=== PATIENT | female | born 1995 | race Caucasian/White ===

== ENCOUNTER 2018-04-14 07:10 | Observation (INO) | payer BC ==
[2018-04-14] MEDS ORDERED: Sodium Chloride 0.9% 10 ML Syringe FLUSH PRN (09:35)
[2018-04-14] MEDS ORDERED: Lidocaine 1% 50 ML MDV INJECT ONE (09:35)
[2018-04-14] MEDS ORDERED: Nalbuphine 20 MG/1 ML Amp IVPUSH PRN (09:35)
[2018-04-14] MEDS ORDERED: Ondansetron 4 MG/2 ML SDV IVPUSH PRN (09:35)
[2018-04-14] MEDS ORDERED: Oxytocin/Lactated Ringers 10 UNIT/1,000 ML BAG IV SCH ×2 (09:45)
[2018-04-14] MEDS ORDERED: Nalbuphine 20 MG/ML 1 ML Syringe IVPUSH PRN (10:00)
[2018-04-14] MEDS: Lactated Ringers 1,000 ML IV SCH ×2 (10:52→11:47)
[2018-04-14] MEDS ORDERED: diphenhydrAMINE 50 MG/ML SDV IVPUSH PRN (12:13)
[2018-04-14] MEDS ORDERED: fentaNYL 100 MCG/2 ML SDV EPIDUR PRN (12:13)
[2018-04-14] MEDS ORDERED: ePHEDrine 50 MG/ML SDV IVPUSH PRN (12:13)
[2018-04-14] MEDS ORDERED: Bupivacaine/fentaNYL/NS 100 ML Bag EPIDUR SCH (12:15)
--- NOTE | 2018-04-18 06:44 | PCM.SN ---
- Free Text/Narrative Note: Brought in for anticipated induction of labor. NST preformed. Labor and delivery unit busy and patient unable to be admitted for labor. Admission cancelled and patient discharged with plans to return tomorrow. Labor, headache and blood pressure and movement precautions given.
== END 2018-04-14 13:30 | disposition home or self-care (01) ==
LOC: JD.OB 07:10
PROVIDERS: ADMIT Obstetrics & Gynecology; ATTEND Obstetrics & Gynecology
DX: O13.3 Gestational [pregnancy-induced] hypertension without significant proteinuria, third trimester (principal); Z88.6 Allergy status to analgesic agent; Z88.1 Allergy status to other antibiotic agents; Z88.0 Allergy status to penicillin; Z91.030 Bee allergy status; Z91.018 Allergy to other foods; Z91.013 Allergy to seafood; Z3A.37 37 weeks gestation of pregnancy
CPT/HCPCS: 36415; 59025; 85025; 96360; G0378; J7120

== ENCOUNTER 2018-04-15 07:26 | Inpatient (IN) | payer BC ==
[2018-04-15] MEDS ORDERED: Lactated Ringers 1,000 ML ONE (07:58)
[2018-04-15] MEDS ORDERED: Ondansetron 4 MG/2 ML SDV IVPUSH PRN ×2 (08:19→08:54)
[2018-04-15] MEDS ORDERED: Nalbuphine 20 MG/ML 1 ML Syringe IVPUSH PRN (08:19)
[2018-04-15] MEDS ORDERED: Lidocaine 1% 50 ML MDV INJECT ONE (08:19)
[2018-04-15] MEDS ORDERED: Sodium Chloride 0.9% 10 ML Syringe FLUSH PRN (08:19)
[2018-04-15] MEDS ORDERED: Oxytocin/Lactated Ringers 10 UNIT/1,000 ML BAG IV SCH ×2 (08:30)
[2018-04-15] MEDS ORDERED: Labetalol 100 MG Tab PO ONE (08:53)
[2018-04-15] MEDS ORDERED: diphenhydrAMINE 50 MG/ML SDV IVPUSH PRN (08:54)
[2018-04-15] MEDS ORDERED: fentaNYL 100 MCG/2 ML SDV EPIDUR PRN (08:54)
[2018-04-15] MEDS ORDERED: ePHEDrine 50 MG/ML SDV IVPUSH PRN (08:54)
[2018-04-15] MEDS ORDERED: Bupivacaine/fentaNYL/NS 100 ML Bag EPIDUR SCH (09:00)
--- NOTE | 2018-04-15 09:45 | PCM.PREANE ---
Preanesthetic Assessment - Anesthesia/Transfusion/Family Hx Anesthesia History: Prior Anesthesia Without Reaction Family History of Anesthesia Reaction: No Transfusion History: Prior Transfusion Without Reaction - Review of Systems General: No Symptoms Pulmonary: No Symptoms Cardiovascular: No Symptoms Gastrointestinal: No Symptoms Neurological: Headache (Constant with ), Other (Blurred vision related to gestational hypertension.) Other: Reports: None - Physical Assessment Pulse: 84 O2 Sat by Pulse Oximetry: 98 Respiratory Rate: 18 Blood Pressure: 130/98 Vital Signs: Last Vital Signs Temp Pulse 84 04/15/18 09:08 Resp BP 130/98 H 04/15/18 09:08 Pulse Ox ASA Class: 2 Mental Status: Alert & Oriented x3 Airway Class: Mallampati = 2 Dentition: Reports: Normal Dentition Thyro-Mental Finger Breadths: 3 Mouth Opening Finger Breadths: 3 ROM/Head Extension: Full Lungs: Clear to Auscultation, Normal Respiratory Effort Cardiovascular: Regular Rate, Regular Rhythm - Lab Values: Laboratory Last Values WBC 10.16 K/mm3 (3.98-10.04) H 04/15/18 09:00 RBC 4.48 M/mm3 (3.98-5.22) 04/15/18 09:00 Hgb 12.0 gm/L (11.2-15.7) 04/15/18 09:00 Hct 36.6 % (34.1-44.9) 04/15/18 09:00 MCV 81.7 fl (79.4-94.8) 04/15/18 09:00 MCH 26.8 pg (25.6-32.2) 04/15/18 09:00 MCHC 32.8 g/dl (32.2-35.5) 04/15/18 09:00 RDW Std Deviation 42.8 fL (36.4-46.3) 04/15/18 09:00 Plt Count 178 K/mm3 (182-369) L 04/15/18 09:00 MPV 13.4 fl (9.4-12.3) H 04/15/18 09:00 Neut % (Auto) 59.2 % (34.0-71.1) 04/15/18 09:00 Lymph % (Auto) 34.4 % (19.3-51.7) 04/15/18 09:00 Stanton % (Auto) 5.1 % (4.7-12.5) 04/15/18 09:00 Eos % (Auto) 0.9 (0.7-5.8) 04/15/18 09:00 Baso % (Auto) 0.1 % (0.1-1.2) 04/15/18 09:00 Neut # (Auto) 6.01 K/mm3 (1.56-6.13) 04/15/18 09:00 Lymph # (Auto) 3.50 K/mm3 (1.18-3.74) 04/15/18 09:00 Stanton # (Auto) 0.52 K/mm3 (0.24-0.36) H 04/15/18 09:00 Eos # (Auto) 0.09 K/mm3 (0.04-0.36) 04/15/18 09:00 Baso # (Auto) 0.01 K/mm3 (0.01-0.08) 04/15/18 09:00 - Allergies Allergies/Adverse Reactions: Allergies Allergy/AdvReac Type Severity Reaction Status Date / Time cefazolin Allergy Rash Verified 04/14/18 09:20 clams Allergy Rash Verified 04/09/18 21:37 erythromycin base Allergy Anaphylactic Verified 04/09/18 21:37 Shock ibuprofen Allergy Bleeding Verified 04/09/18 21:37 kiwi Allergy Rash Verified 04/09/18 21:37 Latex, Natural Rubber Allergy Anaphylactic Verified 04/14/18 09:21 Shock Penicillins Allergy Anaphylactic Verified 04/09/18 21:37 Shock strawberry Allergy Rash Verified 04/09/18 21:37 - Acknowledgements Anesthesia Type Planned: Epidural Pt an Appropriate Candidate for the Planned Anesthesia: Yes Alternatives and Risks of Anesthesia Discussed w Pt/Guardian: Yes Pt/Guardian Understands and Agrees with Anesthesia Plan: Yes Additional Comments: Patient states she had an epidural that did not work previously. She is aware it is a possibility that she could not get good coverage again, but wishes to proceed. 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 Psychiatric History: Reports: Anxiety, Bipolar, Depression, Emotional Problems, Psych Hospitalization(s), Suicide Attempt - Past Surgical History HEENT Surgical History: Reports: Other (See Below) Other HEENT Surgeries/Procedures: 2 HIP SURG Respiratory Surgical History: Reports: None - CURRENT (IN HOUSE) MEDS Current Meds: Current Medications Diphenhydramine HCl (Benadryl) 25 mg IVPUSH Q6H PRN PRN Reason: Pruritis Ephedrine Sulfate (Ephedrine Sulfate) 5 mg IVPUSH ASDIRECTED PRN PRN Reason: Hypotension Fentanyl (Sublimaze) 100 mcg EPIDUR ONETIME PRN PRN Reason: Pain Fentanyl/Bupivacaine HCl (Fentanyl/Bupivacaine/Ns 2 Mcg-0.125% 100 Ml) 100 ml EPIDUR ASDIRECTED FELTON Lactated Ringer's (Ringers, Lactated) 1,000 mls @ 100 mls/hr IV ASDIRECTED FELTON Oxytocin/Lactated Ringer's (Pitocin In Lr 10 Units/1,000 Ml) 10 unit in 1,000 mls @ 500 mls/hr IV .CONTINUOUS FELTON Oxytocin/Lactated Ringer's (Pitocin In Lr 10 Units/1,000 Ml) 10 unit in 1,000 mls @ 12 mls/hr IV TITRATE FELTON; Protocol Nalbuphine HCl (Nubain) 10 mg IVPUSH Q2H PRN PRN Reason: Pain (moderate 4-6) Ondansetron HCl (Zofran) 4 mg IVPUSH Q4H PRN PRN Reason: Nausea/Vomiting Ondansetron HCl (Zofran) 4 mg IVPUSH ONETIME PRN PRN Reason: Nausea/Vomiting Sodium Chloride (Saline Flush) 10 ml FLUSH ASDIRECTED PRN PRN Reason: Keep Vein Open Discontinued Medications Lactated Ringer's (Ringers, Lactated) Confirm Administered Dose 1,000 mls @ as directed .ROUTE .STK-MED ONE Stop: 04/15/18 07:59 Labetalol HCl (Normodyne) 100 mg PO STAT ONE Stop: 04/15/18 08:54 Last Admin: 04/15/18 09:08 Dose: 100 mg Lidocaine HCl (Xylocaine 1%) 50 ml INJECT ONETIME ONE Stop: 04/15/18 08:20
[2018-04-15] MEDS: Lactated Ringers 1,000 ML IV SCH ×3 (10:31→15:57)
[2018-04-15] MEDS ORDERED: fentaNYL 100 MCG/2 ML SDV ONE (15:44)
--- NOTE | 2018-04-15 17:42 | PCM.SN ---
- Free Text/Narrative Note: Stage I - Patient presented for IOL for mild pre-ecclampsia. AROM and pitocin augmentation. Progressed to complete with epidural and overall reassuring heart tones. Stage II - of viable female, weight 6#2OZ, APGARS 7/8 at 1726. Head delivered in controlled manner over intact perineum. Baby to maternal abdomen. Cord clamped and cut. Baby not vigorous so to warmer. Cord blood collected. Stage III - Placenta delivered spontaneous and intact. 3VC. EBL 200.
[2018-04-15] MEDS ORDERED: Lanolin 100% Cream 7 GM Tube TOP PRN (17:48)
[2018-04-15] MEDS ORDERED: Witch Hazel Medicated Pads 100/Jar TOP PRN (17:48)
[2018-04-15] MEDS ORDERED: Ibuprofen 600 MG Tab PO PRN (17:48)
[2018-04-15] MEDS: Acetaminophen 325 MG Tab PO PRN (20:50)
[2018-04-15] MEDS ORDERED: Bupivacaine 0.25% 10 ML SDV ONE (22:00)
[2018-04-15] MEDS ORDERED: Benzocaine/Menthol 20%-0.5% Spray 56 GM Canister TOP PRN (23:49)
[2018-04-16] MEDS: Acetaminophen 325 MG Tab PO PRN ×4 (04:19→22:02)
[2018-04-16] MEDS: Sertraline 50 MG Tab PO SCH (17:32)
[2018-04-17] MEDS: Ondansetron 4 MG Tab.DIS PO PRN ×2 (03:07→13:28)
[2018-04-17] MEDS: Acetaminophen 325 MG Tab PO PRN ×2 (04:18→09:26)
--- NOTE | 2018-04-17 08:53 | PCM.DCSUM1 ---
Discharge Summary - Hospital Course Brief History: Admitted for induction for gestational hypertension. Uncomplicated delivery and . - Discharge Data Discharge Date: 04/17/18 Discharge Disposition: Home, Self-Care 01 Condition: Good - Discharge Diagnosis/Problem(s) (1) 37 weeks gestation of SNOMED Code(s): 28539179 ICD Code: Z3A.37 - 37 WEEKS GESTATION OF Status: Acute Current Visit: No (2) Gestational hypertension SNOMED Code(s): 92311340 ICD Code: O13.9 - GESTATIONAL HTN W/O SIGNIFICANT PROTEINURIA, UNSP TRIMESTER Status: Acute Current Visit: No (3) Headache in SNOMED Code(s): 77232958 ICD Code: O26.899 - OTH RELATED CONDITIONS, UNSPECIFIED TRIMESTER; R51 - HEADACHE Status: Acute Current Visit: No - Patient Summary/Data Hospital Course: Uncomplicated delivery. Preexisting depression. Resume effexor on discharge. - Patient Instructions Diet: Heart Healthy Diet Activity: No Strenuous Activities Activity, Other: pelvic rest for 6 weeks Driving: May Drive Today Showering/Bathing: May Shower Notify Provider of: Fever, Increased Pain, Swelling and Redness, Drainage, Nausea and/or Vomiting - Discharge Plan Referrals: Donna Brown MD [Primary Care Provider] - (2 weeks) - Discharge Summary/Plan Comment DC Time >30 min.: No - General Info Date of Service: 04/17/18 Functional Status: Reports: Pain Controlled - Review of Systems General: Reports: No Symptoms HEENT: Reports: No Symptoms Pulmonary: Reports: No Symptoms Cardiovascular: Reports: No Symptoms Gastrointestinal: Reports: No Symptoms Genitourinary: Reports: No Symptoms Musculoskeletal: Reports: No Symptoms Skin: Reports: No Symptoms Neurological: Reports: No Symptoms Psychiatric: Reports: No Symptoms - Patient Data Vitals - Most Recent: Last Vital Signs Temp 36.9 C 04/17/18 02:54 Pulse 71 04/17/18 02:54 Resp 16 04/17/18 02:54 BP 140/106 H 04/17/18 02:54 Pulse Ox 98 04/17/18 02:54 Weight - Most Recent: 84.368 kg I&O - Last 24 hours: Intake & Output 04/16/18 04/17/18 04/17/18 22:59 06:59 14:59 Intake Total 120 Balance 120 Med Orders - Current: Current Medications Acetaminophen (Tylenol) 650 mg PO Q4H PRN PRN Reason: Pain Last Admin: 04/17/18 04:18 Dose: 650 mg Benzocaine/Menthol (Dermoplast Pain Relief [place]) 56 gm TOP ASDIRECTED PRN PRN Reason: Pain Last Admin: 04/16/18 00:00 Dose: 1 canister Emollient Ointment (Lansinoh Hpa) 0 gm TOP ASDIRECTED PRN PRN Reason: Sore Nipples Last Admin: 04/16/18 04:18 Dose: 1 tube Ondansetron HCl (Zofran Odt) 4 mg PO Q4H PRN PRN Reason: Nausea/Vomiting Last Admin: 04/17/18 03:07 Dose: 4 mg Sertraline HCl (Zoloft) 50 mg PO DAILY FELTON Last Admin: 04/16/18 17:32 Dose: 50 mg Witch Charla (Tucks) 1 pad TOP ASDIRECTED PRN PRN Reason: Hemorrhoid pain Last Admin: 04/15/18 20:49 Dose: 1 tub Discontinued Medications Bupivacaine HCl (Sensorcaine-Mpf 0.25%) 10 ml .ROUTE .STK-MED ONE Stop: 04/15/18 22:01 Diphenhydramine HCl (Benadryl) 25 mg IVPUSH Q6H PRN PRN Reason: Pruritis Last Admin: 04/15/18 13:17 Dose: 25 mg Ephedrine Sulfate (Ephedrine Sulfate) 5 mg IVPUSH ASDIRECTED PRN PRN Reason: Hypotension Fentanyl (Sublimaze) 100 mcg EPIDUR ONETIME PRN PRN Reason: Pain Last Admin: 04/15/18 11:01 Dose: 100 mcg Fentanyl (Sublimaze) Confirm Administered Dose 100 mcg .ROUTE .STK-MED ONE Stop: 04/15/18 15:45 Last Admin: 04/15/18 15:50 Dose: 100 mcg Fentanyl/Bupivacaine HCl (Fentanyl/Bupivacaine/Ns 2 Mcg-0.125% 100 Ml) 100 ml EPIDUR ASDIRECTED [facility] Last Admin: 04/15/18 11:01 Dose: 100 ml Lactated Ringer's (Ringers, Lactated) Confirm Administered Dose 1,000 mls @ as directed .ROUTE .STK-MED ONE Stop: 04/15/18 07:59 Last Admin: 04/15/18 08:15 Dose: 100 mls/hr Lactated Ringer's (Ringers, Lactated) 1,000 mls @ 100 mls/hr IV ASDIRECTED FELTON Last Admin: 04/15/18 15:57 Dose: 500 mls/hr Oxytocin/Lactated Ringer's (Pitocin In Lr 10 Units/1,000 Ml) 10 unit in 1,000 mls @ 500 mls/hr IV .CONTINUOUS FELTON Oxytocin/Lactated Ringer's (Pitocin In Lr 10 Units/1,000 Ml) 10 unit in 1,000 mls @ 12 mls/hr IV TITRATE FELTON; Protocol Last Titration: 04/15/18 15:10 Dose: 12 munits/min, 72 mls/hr Ibuprofen (Motrin) 600 mg PO Q6H PRN PRN Reason: Mild pain or fever Labetalol HCl (Normodyne) 100 mg PO STAT ONE Stop: 04/15/18 08:54 Last Admin: 04/15/18 09:08 Dose: 100 mg Lidocaine HCl (Xylocaine 1%) 50 ml INJECT ONETIME ONE Stop: 04/15/18 08:20 Last Admin: 04/15/18 18:13 Dose: Not Given Nalbuphine HCl (Nubain) 10 mg IVPUSH Q2H PRN PRN Reason: Pain (moderate 4-6) Ondansetron HCl (Zofran) 4 mg IVPUSH Q4H PRN PRN Reason: Nausea/Vomiting Ondansetron HCl (Zofran) 4 mg IVPUSH ONETIME PRN PRN Reason: Nausea/Vomiting Sodium Chloride (Saline Flush) 10 ml FLUSH ASDIRECTED PRN PRN Reason: Keep Vein Open - Exam General: Reports: Alert, Oriented HEENT: Reports: Pupils Equal, Pupils Reactive, EOMI, Mucous Membr. Moist/[place] Neck: Reports: Supple Lungs: Reports: Clear to Auscultation, Normal Respiratory Effort Cardiovascular: Reports: Regular Rate, Regular Rhythm GI/Abdominal Exam: Normal Bowel Sounds, Soft, Non-Tender, No Organomegaly, No Distention, No Abnormal Bruit, No Mass, Pelvis Stable (Female) Exam: Normal External Exam, Normal Speculum Exam, Normal Bimanual Exam Back Exam: Reports: Normal Inspection, Full Range of Motion Extremities: Normal Inspection, Normal Range of Motion, Non-Tender, No Pedal Edema, Normal Capillary Refill Skin: Reports: Warm, Dry, Intact Wound/Incisions: Reports: Healing Well Neurological: Reports: No New Focal Deficit Psy/Mental Status: Reports: Alert, Normal Affect, Normal Mood
[2018-04-17] MEDS: Sertraline 50 MG Tab PO SCH (09:26)
== END 2018-04-17 15:00 | disposition home or self-care (01) | DRG 560 ==
LOC: JD.OB 07:26 → OBSVTOIN 17:26 → JD.OB 17:26
PROVIDERS: ADMIT Obstetrics & Gynecology; ATTEND Obstetrics & Gynecology
PROC: 10E0XZZ Delivery of Products of Conception, External Approach (ICD-10-PCS; principal; 2018-04-15)
PROC: 10907ZC Drainage of Amniotic Fluid, Therapeutic from Products of Conception, Via Natural or Artificial Opening (ICD-10-PCS; 2018-04-15)
PROC: 3E033VJ Introduction of Other Hormone into Peripheral Vein, Percutaneous Approach (ICD-10-PCS; 2018-04-15)
PROC: 6A550ZT Pheresis of Cord Blood Stem Cells, Single (ICD-10-PCS; 2018-04-15)
PROC: 00HU33Z Insertion of Infusion Device into Spinal Canal, Percutaneous Approach (ICD-10-PCS; 2018-04-15)
PROC: 3E0R3BZ Introduction of Anesthetic Agent into Spinal Canal, Percutaneous Approach (ICD-10-PCS; 2018-04-15)
DX: O13.4 Gestational [pregnancy-induced] hypertension without significant proteinuria, complicating childbirth (principal); O69.81X0 Labor and delivery complicated by cord around neck, without compression, not applicable or unspecified; Z3A.37 37 weeks gestation of pregnancy; Z37.0 Single live birth
CPT/HCPCS: 36415; 51702; 59025; 59409; 82565; 83615; 84450; 84460; 84520; 84550; 85025; A9270-GY; J1200; J2590; J3010; J7120

== ENCOUNTER 2018-08-18 15:41 | Emergency (ER) | payer BC ==
--- NOTE | 2018-08-18 16:12 | EDM.PDOC ---
ED HPI GENERAL MEDICAL PROBLEM - General Chief Complaint: Lower Extremity Injury/Pain Stated Complaint: L FOOT INJURY - DOG BITE Time Seen by Provider: 08/18/18 16:11 - History of Present Illness INITIAL COMMENTS - FREE TEXT/NARRATIVE: 23-year-old male presents emergency room after getting bit the left foot by the family dog. This occurred shortly before arrival according to the patient the dog is up-to- date on its rabies vaccinations. Patient has a puncture wound over the ball the foot in approximately the middle but again over the tibial aspect of the forefoot just proximal to the great metatarsal head. This occurred about 3 or 4 hours prior to arrival. The patient is nursing her and is allergic to penicillin. Left Feet Pain Score (Numeric/FACES): 8 - Related Data Allergies Allergy/AdvReac Type Severity Reaction Status Date / Time cefazolin Allergy Rash Verified 04/14/18 09:20 clams Allergy Rash Verified 04/09/18 21:37 erythromycin base Allergy Anaphylactic Verified 04/09/18 21:37 Shock ibuprofen Allergy Bleeding Verified 04/09/18 21:37 kiwi Allergy Rash Verified 04/09/18 21:37 Latex, Natural Rubber Allergy Anaphylactic Verified 04/14/18 09:21 Shock Penicillins Allergy Anaphylactic Verified 04/09/18 21:37 Shock strawberry Allergy Rash Verified 04/09/18 21:37 Home Meds: Home Meds Clindamycin HCl 600 mg PO Q8H #40 capsule 08/18/18 [Rx] Venlafaxine [Effexor] 37.5 mg PO BID 08/18/18 [History] Past Medical History - Past Health History Medical/Surgical History: Denies Medical/Surgical History HEENT History: Reports: Other (See Below) Other HEENT History: ASTHMA Respiratory History: Reports: 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 Psychiatric History: Reports: Anxiety, Bipolar, Depression, Emotional Problems, Psych Hospitalization(s), PTSD, Schizophrenia, Suicide Attempt - Past Surgical History HEENT Surgical History: Reports: Other (See Below) Other HEENT Surgeries/Procedures: 2 HIP SURG Respiratory Surgical History: Reports: None Social & Family History - Family History Family Medical History: Noncontributory - Caffeine Use Caffeine Use: Reports: Coffee - Recreational Drug Use Recreational Drug Use: No Review of Systems - Review of Systems Review Of Systems: See Below Constitutional: Reports: No Symptoms Respiratory: Reports: No Symptoms Cardiovascular: Reports: No Symptoms GI/Abdominal: Reports: No Symptoms Genitourinary: Reports: No Symptoms Neurological: Reports: No Symptoms ED EXAM, GENERAL - Physical Exam Exam: See Below Exam Limited By: No Limitations General Appearance: Alert, No Apparent Distress Neck: Normal Inspection, Supple, Non-Tender, Full Range of Motion Respiratory/Chest: No Respiratory Distress, Lungs Clear, Normal Breath Sounds Cardiovascular: Regular Rate, Rhythm, No Edema, No Murmur Extremities: Normal Range of Motion, No Pedal Edema, Normal Capillary Refill, Other (Patient left foot shows large puncture wound with associated tear on the medial aspect of her forefoot just proximal to the great metatarsal head she has a simple puncture wound near the head of the third metatarsal on the ball of the foot. Her foot was cleansed here in the emergency department and it was deemed best not to attempt closure of the larger puncture wound with associated tear laceration). No: Non-Tender (She has tenderness over the ball of the foot near the puncture wounds and the side of her foot) Course - Vital Signs Last Recorded V/S: Last Vital Signs Temp 36.8 C 08/18/18 15:58 Pulse 89 08/18/18 15:58 Resp 20 08/18/18 15:58 BP 129/95 H 08/18/18 15:58 Pulse Ox 99 08/18/18 15:58 - Orders/Labs/Meds Orders: Active Orders 24 hr Category Date Time Status Foot Comp Min 3V Lt [CR] Stat Exams 08/18/18 16:21 Taken Meds: Medications Discontinued Medications Generic Name Dose Route Start Last Admin Trade Name Dulce PRN Reason Stop Dose Admin Clindamycin HCl 600 mg 08/18/18 16:46 08/18/18 16:50 Cleocin PO 08/18/18 16:47 600 mg ONETIME ONE Administration Levofloxacin 750 mg 08/18/18 16:25 08/18/18 16:49 Levaquin PO 08/18/18 16:26 Not Given ONETIME ONE Metronidazole 500 mg 08/18/18 16:25 08/18/18 16:50 Flagyl PO 08/18/18 16:26 Not Given ONETIME ONE - Re-Assessments/Exams Free Text/Narrative Re-Assessment/Exam: 08/18/18 19:34 X-ray evaluation foot is unremarkable antibiotics were deemed appropriate because of the location of the puncture wounds albeit it was a dog inflicted bite the patient cannot take Augmentin because of allergies to penicillin she is nursing should not use Levaquin or ciprofloxacin and she will not stay in the hospital for IV antibiotics the need to be given more frequently which is third line for the situation discussed the pros and cons of antibiotic therapy with the patient and we decided to attempt clindamycin 600 mg 3 times a day as this should be fairly safe with nursing and then offer better protection then Flagyl alone and not take the Levaquin because of the nursing. Departure - Departure Time of Disposition: 18:03 Disposition: Home, Self-Care 01 Clinical Impression: Dog bite of left foot - Discharge Information Prescriptions: Clindamycin HCl 600 mg PO Q8H #40 capsule Instructions: Animal Bite, [id number] Referrals: PCP,None [Primary Care Provider] - Forms: ED Department Discharge Additional Instructions: Return to the emergency room with any questions problems worsening symptoms. Wear the postop shoe as needed. Take the antibiotics as directed. Follow-up with the clinic on Thursday for recheck. Epsom salts soaks every couple hours while awake - My Orders Last 24 Hours: My Active Orders 08/18/18 16:21 Foot Comp Min 3V Lt [CR] Stat - Assessment/Plan Last 24 Hours: My Active Orders 08/18/18 16:21 Foot Comp Min 3V Lt [CR] Stat
[2018-08-18] MEDS: metroNIDAZOLE 500 MG Tab PO ONE ×2 (16:36→16:50)
[2018-08-18] MEDS: Levofloxacin 750 MG Tab PO ONE ×2 (16:36→16:49)
[2018-08-18] MEDS ORDERED: Clindamycin HCl 150 MG Cap PO ONE (16:46)
== END 2018-08-18 18:20 | disposition home or self-care (01) ==
LOC: JD.ED 15:41
DX: S91.352A Open bite, left foot, initial encounter (principal); S91.332A Puncture wound without foreign body, left foot, initial encounter; Z88.1 Allergy status to other antibiotic agents; Z88.6 Allergy status to analgesic agent; Z91.040 Latex allergy status; Z88.0 Allergy status to penicillin; Z91.018 Allergy to other foods; W54.0XXA Bitten by dog, initial encounter
CPT/HCPCS: 73630; 99284; A9270; 99283

== ENCOUNTER 2022-07-10 20:56 | Emergency (ER) | payer MEDICAID ==
[2022-07-10] MEDS ORDERED: Albuterol/Ipratropium 3.0-0.5 MG/3 ML Neb Soln NEB ONE (21:45)
[2022-07-10 21:56] LABS: CORONAVIRUS COVID-19 NAA NEGATIVE (NEGATIVE)
[2022-07-10] MEDS ORDERED: Albuterol 6.7 GM Inhaler INH ONE (23:07)
== END 2022-07-10 23:45 | disposition home or self-care (01) ==
LOC: JD.ED 20:56
DX: J40 Bronchitis, not specified as acute or chronic (principal); F17.210 Nicotine dependence, cigarettes, uncomplicated; Z88.1 Allergy status to other antibiotic agents; Z88.6 Allergy status to analgesic agent; Z91.018 Allergy to other foods; Z88.0 Allergy status to penicillin; Z91.040 Latex allergy status; Z79.899 Other long term (current) drug therapy; Z20.822 Contact with and (suspected) exposure to COVID-19
CPT/HCPCS: 0240U; 71045; 94640; 99285; A9270; 99282; J7620-GY